=== PATIENT | male | born 1955 | race Caucasian/White ===

== ENCOUNTER → 2016-07-20 13:47 | Outpatient (CLI) | payer OTHER ==
[2012-05-11 07:35] VITALS: BMI 29.2
== END | disposition home or self-care (01) ==
LOC: D.US 13:47
DX: I65.23 Occlusion and stenosis of bilateral carotid arteries (principal)

== ENCOUNTER 2017-01-12 07:27 | Outpatient (CLI) | payer OTHER ==
[~2017-01-12] VITALS: Ht 182.9 cm; Wt 86.4 kg
--- NOTE | ~2017-01-12 | HEMODYNAMI ---
PATIENT:FAUSTINA MONACO MEDICAL RECORD: [id number] : 55 LOCATION:D.CAT ADMISSION DATE: 01/12/17 Generatedon:01/12/20179:53 Patient name: FAUSTINA MONACO Patient #: [id number] SSN: : 1955 Date of study: 01/12/2017 Page: Of Hemodynamic Procedure Report Patient Data Patient Demographics Procedure consent was obtained First Name: FAUSTINA Gender: Male Last Name: JACINDA : 1955 Middle Initial: A Age: 61 year(s) Patient #: [id number] Race: Unknown Additional ID: [id number] Contact details [address]: [address] [place] [address] State: [place] City: [place] Zip code: [address] Past Medical History Allergies: No known allergies Admission Admission Data Admission Date: 01/12/2017 Admission Time: 7:27 Lab Results Lab Result Date: 01/12/2017 Lab Result Time: 0:00 Biochemistry Name Units Result Min Max Creatinine mg/dl 1 --(--*-)-- 0.6 1.3 CBC Name Units Result Min Max Hemoglobin g/dl 14.6 --(-*--)-- 13.5 17.5 Procedure Procedure Types Cath Procedure Diagnostic Procedure [facility] w/Coronaries PCI Procedure Coronary Stent Initial Miscellaneous Procedures Moderate Sedation up to 15 minutes Procedure Description Procedure Date Procedure Date: 01/12/2017 Procedure Start Time: 9:36 Procedure End Time: 9:50 Procedure Staff Name Function Cayden Dale MD Performing Physician Vielka Mckinney RT Scrub Abisai Lilly RT Scrub Mariana Natarajan RT Monitor Marshal Wilkerson RN Nurse Procedure Data Cath Procedure Fluoroscopy Diagnostic fluoroscopy Total fluoroscopy Time: 2.8 time: 2.8 min min Diagnostic fluoroscopy Total fluoroscopy dose: 577 dose: 577 mGy mGy Contrast Material Contrast Material Type Amount (ml) Isovue 300 65 Entry Location Entry Primary Successful Side Size Upsize Upsize Entry Closure Interiano ccessful Closure Location (Fr) 1 (Fr) 2 (Fr) Remarks Device Remarks Radial Right 6 Fr Mechanical artery Short Compression Estimated blood loss: 10 ml Diagnostic catheters Device Type Used For End Catheter Placement Diagnostic Terumo 5Fr LV Angiography Assawoman 110cm catheter Diagnostic Terumo 5Fr Left Coronary Assawoman 110cm catheter Angiography Diagnostic Terumo 5Fr Right Coronary Assawoman 110cm catheter Angiography Procedure Complications No complications Procedure Medications Medication Administration Route Dosage 0.9% NaCl I.V. 100 ml/hr Oxygen NC 2 l/min Benadryl I.V. 50 mg Heparin Flush Bag added to field 2 bags (1000units/500ml NS) Lidocaine 2% added to field 20 Radial Cocktail added to field 1 syringe (Verapomil 2mg/Nitro 400mcg/Heparin 1500units) Versed I.V. 2 mg Fentanyl I.V. 100 mcg Radial Cocktail I.A. 1 syringe (Verapomil 2mg/Nitro 400mcg/Heparin 1500units) Integrilin (Bolus I.V. 7.9 ml 2mg/ml) Heparin Bolus I.V. 4000 units Plavix P.O. 600 mg Hemodynamics Rest HGB: 14.6 (g/dl) Heart Rate: 53 (bpm) Snapshots Pre Cath Intra NCS Post Cath Vital Signs Time Heart Resp SPO2 etCO2 HW4wstm NIBP (mmHg) Rhythm Pain Sedation Rate (ipm) (%) (mmHg) (mmHg) Status Level (bpm) 9:21:45 53 24 96 0 0 136/68(111) NSR 0 (11) 10(A) , No pain 9:26:09 53 13 97 0 0 137/73(112) NSR 0 (11) 10(A) , No pain 9:30:31 53 13 97 0 0 126/71(111) NSR 0 (11) 10(A) , No pain 9:34:51 53 16 97 0 0 126/66(104) NSR 0 (11) 10(A) , No pain 9:39:12 60 16 95 0 0 117/55(83) NSR 0 (11) 10(A) , No pain 9:43:30 58 17 95 0 0 117/59(95) NSR 0 (11) 10(A) , No pain 9:47:47 59 19 96 0 0 124/64(100) NSR 0 (11) 10(A) , No pain 9:52:06 53 13 97 0 0 130/68(106) NSR 0 (11) 10(A) , No pain Medications Time Medication Route Dose Verified Delivered Reason Notes Effectiveness by by 9:18:45 0.9% NaCl I.V. 100 Marshal Marshal Per physician ml/hr Rock Wilkerson RN RN 9:19:14 Oxygen NC 2 l/min Marshal Marshal Per physician Rock Wilkerson RN RN 9:19:48 Benadryl I.V. 50 mg Marshal Marshal for sedation Rock Wilkerson RN, RN 9:20:18 Heparin Flush added 2 bags Marshal Marshal used for Bag to Lorigan Rock procedure (1000units/500ml field MORFIN RN NS) 9:20:36 Lidocaine 2% added 20ml Marshal Marshal used for to vial Lorigan Lorigan procedure field MORFIN RN 9:21:00 Radial Cocktail added 1 Marshal Marshal for (Verapomil to syringe Rock Wilkerson vasodilation 2mg/Nitro field MORFIN RN 400mcg/Heparin 1500units) 9:35:42 Versed I.V. 2 mg Marshal Marshal for sedation Rock Wilkerson RN RN 9:35:59 Fentanyl I.V. 100 mcg Marshal Marshal for sedation Rock Wilkerson RN RN 9:38:14 Radial Cocktail I.A. 1 Marshal Cayden for (Verapomil syringe Rock Dale MD vasodilation 2mg/Nitro RN 400mcg/Heparin 1500units) 9:45:03 Integrilin I.V. 7.9ml Marshal Marshal for (Bolus 2mg/ml) Rock Wilkerson antiplatelet RN RN therapy 9:45:42 Heparin Bolus I.V. 4000 Marshal Marshal for units Rock Wilkerson anticoagulation RN RN 9:50:48 Plavix P.O. 600 mg Marshal Marshal for Rock Wilkerson antiplatelet RN RN therapy Procedure Log Time Note 9:00:04 Marshal Wilkerson RN sent for patient. Start room use. 9:11:10 Time tracking: Regular hours 9:11:14 Plan of Care:Hemodynamics will remain stable., Cardiac rhythm will remain stable., Comfort level will be maintained., Respiratory function will remain adequate., Patient/ family verbilizes understanding of procedure., Procedure tolerated without complication., Recovers from procedure without complications.. 9:11:18 Patient received from Pre/Post Procedure Room to CCL 1 Alert and oriented. Tansferred to table in Supine position. 9:11:19 Warm blankets applied, and juliet hugger turned on for patient comfort. 9:11:19 Correct patient and procedure confirmed by team. 9:11:20 Signed procedure consent form obtained from patient. 9:11:21 ECG and BP/O2 sat monitors applied to patient. 9:11:22 Full Disclosure recording started 9:12:35 H&P Date Dictated: 01/12/2017 H&P Addendum completed by physician on day of procedure. (MUST COMPLETE FOR ALL OUTPATIENTS), New H&P dictated by physician.. 9:12:37 Pre-procedure instructions explained to patient. 9:12:37 Pre-op teaching completed and patient verbalized understanding. 9:12:39 Family in patients room. 9:12:40 Patient NPO since Midnight. 9:12:51 Patient allergic to No known allergies 9:12:57 Rhythm: sinus bradycardia 9:13:05 Vital chart was started 9:13:08 Is the patient allergic to Iodine/contrast media? No. 9:13:11 Is patient on blood thinner?No 9:13:15 Patient diabetic? No. 9:13:18 Previous problem with sedation/anesthesia? No ? 9:13:19 Snore? Yes 9:13:20 Sleep apnea? No 9:13:21 Deviated septum? No 9:13:21 Opens mouth fully? Yes 9:13:22 Sticks out tongue? Yes 9:13:24 Airway obstruction? No ? 9:13:25 Dentures? No ? 9:13:28 Pre procedure: right dorsailis pedis pulse 2+ Normal; easily identifiable; not easily obliterated 9:13:35 Modified Parag's test Ulnar < 7 seconds 9:13:38 Patient pain scale 0/10 ?. 9:13:44 IV patent on arrival in left hand with 0.9% NaCl at [facility]. 9:14:25 Lab Result : Creatinine 1 mg/dl 9:14:25 Lab Result : Hemoglobin 14.6 g/dl 9:14:28 Lab results completed and on chart. 9:14:34 Right Radial & Right Groin area was prepped with chlora-prep and draped in sterile fashion 9:14:35 Alarms reviewed by R. N. 9:14:35 Sharps counted by scrub and verified by R.N. 9:14:39 Use device set Radial Dx 9:14:40 Acist Syringe opened to sterile field. 9:14:41 Medline Cath Pack opened to sterile field. 9:14:41 Bag Decanter opened to sterile field. 9:14:42 Terumo 6Fr Slender Glidesheath opened to sterile field. 9:14:42 St Navid 260cm J .035 wire opened to sterile field. 9:14:42 Acist Hand Control opened to sterile field. 9:14:43 Acist Manifold opened to sterile field. 9:14:43 Tegaderm 4 x 4 opened to sterile field. 9:14:43 MBrace Wrist Support opened to sterile field. 9:17:43 Baseline sample Acquired. 9:18:45 0.9% NaCl 100 ml/hr I.V. was administered by Marshal Wilkerson RN; Per physician; 9:19:14 Oxygen 2 l/min NC was administered by Marshal Wilkerson RN; Per physician; 9:19:18 Vital chart was stopped 9:19:48 Benadryl 50 mg I.V. was administered by Marshal Wilkerson RN; for sedation; 9:20:18 Heparin Flush Bag (1000units/500ml NS) 2 bags added to field was administered by Marshal Wilkerson RN; used for procedure; 9:20:36 Lidocaine 2% 20ml vial added to field was administered by Marshal Wilkerson RN; used for procedure; 9:20:36 Vital chart was started 9:21:00 Radial Cocktail (Verapomil 2mg/Nitro 400mcg/Heparin 1500units) 1 syringe added to field was administered by Marshal Wilkerson RN; for vasodilation; 9:26:59 Physician paged 9:34:26 Final Timeout: patient, procedure, and site verified with staff and physician. All members of the team are in agreement. 9:34:27 Right Radial site verified by team. 9:34:37 Physical assessment completed. ASA score P 2 - A patient with mild systemic disease as per Cayden Dale MD. 9:34:41 Sedation plan: IV Moderate Sedation Versed, Fentanyl 9:35:42 Versed 2 mg I.V. was administered by Marshal Lorigan RN; for sedation; 9:35:59 Fentanyl 100 mcg I.V. was administered by Marshal Wilkerson RN; for sedation; 9:36:03 Procedure started. 9:36:11 Local anesthetic to right radial artery with Lidocaine 2% by Cayden Dale MD.INITIAL ACCESS ONLY 9:36:46 A 6 Fr Short sheath was inserted into the Right Radial artery 9:38:14 Radial Cocktail (Verapomil 2mg/Nitro 400mcg/Heparin 1500units) 1 syringe I.A. was administered by Cayden Dale MD; for vasodilation; 9:38:35 A Diagnostic Terumo 5Fr Assawoman 110cm catheter was advanced over the wire and used for LV Angiography. 9:38:50 LV gram done using MONROY 9:38:57 EF : 60 % 9:39:01 Injector settings: Ml/sec: 5, Volume: 15, 9:39:07 A Diagnostic Terumo 5Fr Assawoman 110cm catheter was advanced over the wire and used for Left Coronary Angiography. 9:39:55 A Diagnostic Terumo 5Fr Assawoman 110cm catheter was advanced over the wire and used for Right Coronary Angiography. 9:40:07 OMG BasixCompak Inflation Kit opened to sterile field. 9:40:08 Beard Whisper J 300cm 0.014 guide wire opened to sterile field. 9:40:37 Catheter removed. 9:41:04 Cordis 6FR XBLAD 3.5 guide catheter opened to sterile field. 9:41:39 6 Fr XBLAD 3.5 guide catheter was inserted over the wire 9:43:43 Whisper wire advanced. 9:45:03 Integrilin (Bolus 2mg/ml) 7.9ml I.V. was administered by Marshal Wilkerson RN; for antiplatelet therapy; 9:45:42 Heparin Bolus 4000 units I.V. was administered by Marshal Wilkerson RN; for anticoagulation; 9:45:54 Inflation Number: 1 A Raz OTW 3.0 x 18 stent was prepped and advanced across the Prox CX. The stent was deployed at 11 OSCAR for 0:10 (min:sec). 9:46:09 Stent catheter was removed intact over wire. 9:46:10 Wire removed. 9:46:10 Guide catheter removed. 9:46:18 Sheath removed intact; hemostasis achieved with Mechanical Compression to the Right Radial artery. 9:46:24 Procedure ended.(Physican Out) 9:46:35 Fluoroscopy time 02.80 minutes. 9:46:38 Fluoroscopy dose: 577 mGy 9:46:38 Flurop Dose total: 577 9:46:42 Contrast amount:Isovue 300 65ml. 9:46:43 Sharps counted by scrub and verified by R.N. 9:46:53 TR band inflated with 10cc of air. 9:46:54 Insertion/operative site no bleeding no hematoma. 9:47:01 Post right radial artery:stable, clean and dry 9:47:03 Post Procedure Pulses reassessed and unchanged 9:47:06 Post-procedure physical assessment completed. ASA score P 2 - A patient with mild systemic disease as per Cayden Dale MD. 9:47:08 Post procedure rhythm: unchanged. 9:47:12 Estimated blood loss: 10 ml 9:47:13 Post procedure instruction explained to patient.Patient verbalizes understanding. 9:47:13 Patient needs reinforcement of post procedure teaching. 9:47:26 Procedure type changed to Cath procedure, Diagnostic procedure, LHC, LHC w/Coronaries, PCI procedure, Coronary Stent Initial, Miscellaneous Procedures, Moderate Sedation up to 15 minutes 9:47:33 Procedure Complication : No complications 9:47:36 See physician's report for complete and final results. 9:47:51 Terumo TR Band Standard opened to sterile field. 9:49:07 Procedure and supply charges have been captured, reviewed, submitted and are correct. 9:50:12 Report given to Pre/Post Procedure Room. 9:50:18 Patient transfered to Pre/Post Procedure Room with Stretcher. 9:50:36 Procedure ended. 9:50:36 Full Disclosure recording stopped 9:50:48 Plavix 600 mg P.O. was administered by Marshal Wilkerson RN; for antiplatelet therapy; 9:50:58 End room use (Document Last) 9:53:08 Vital chart was stopped Intervention Summary Intervention Notes Time ActionType Lesion and Equipment Action# Pressure Duration Attributes Used 9:45:54 Place stent Prox CX Raz OTW 1 11 00:10 3.0 x 18 stent Device Usage Item Name Manufacture Quantity Catalog Hospital Part Current Minima l Lot# / Number Charge Number Stock Stock Serial# Code Acist Acist 1 [id number] [id number] 842612 111137 20 Syringe Medical Systems Inc Medline Cardinal 1 [id number] 734895 47315 423093 5 Cath Pack Health Bag Microtek 1 2002S 071381 45759 238928 5 Decanter Medical Inc. Terumo 6Fr Terumo 1 [id number] 959005 660353 452416 [address] Nav[address] St Navid 1 391715 021845 870155 816301 30 260cm J .035 wire Acist Hand Acist 1 22107 139788 008192 113221 5 Control Medical Systems Inc Acist Acist 1 27637 738175 402630 305423 5 Manifold Medical Systems Inc Tegaderm 4 3M 1 1626W 776965 809722 745129 5 x 4 MBrace Advanced 1 140-0250-00 866179 23008 573222 5 Wrist Vascular Support Dynamics Diagnostic Terumo 1 36-0248 535147 384155 490378 5 Terumo 5Fr Assawoman 110cm catheter Merit Merit 1 [id number] 678658 408791 302880 15 BasixCompak Medical Inflation Kit Beard Beard 1 [id number] 862132 543633 304528 5 Whisper J Vascular 300cm 0.014 guide wire Cordis 6FR Cardinal 1 [id number] 479203 275516 642633 10 XBLAD 3.5 Health guide catheter [place] OTW Medtronic 1 [id number] 498488 7772361 254865 5 [id number] 3.0 x 18 stent Terumo TR Terumo 1 [id number] 346512 400895 940982 40 Band Standard Signature Audit [place] Stage Time Signature Unsigned Intra-Procedure 01/12/2017 Mariana 9:53:06 AM Counts RT(R) Signatures Monitor : Mariana Signature : Counts RT Date : Time : [facility] [address] [place] [address]
--- NOTE | ~2017-01-12 | HEMODYNAMI ---
PATIENT:FAUSTINA MONACO MEDICAL RECORD: [id number] : 55 LOCATION:[id number] ADMISSION DATE: 01/12/17 Generatedon:01/13/20178:47 Patient name: FAUSTINA MONACO Patient #: [id number] SSN: : 1955 Date of study: 01/13/2017 Page: Of Hemodynamic Procedure Report Patient Data Patient Demographics Procedure consent was obtained First Name: FAUSTINA Gender: Male Last Name: JACINDA : 1955 Middle Initial: A Age: 61 year(s) Patient #: [id number] Race: Unknown Additional ID: [id number] Contact details [address]: [address] [place] [address] State: [place] City: [place] Zip code: [address] Past Medical History Allergies: No known allergies Admission Admission Data Admission Date: 01/12/2017 Admission Time: 7:27 Room #: 2119 Lab Results Lab Result Date: 01/12/2017 Lab Result Time: 0:00 Biochemistry Name Units Result Min Max Creatinine mg/dl 1 --(--*-)-- 0.6 1.3 CBC Name Units Result Min Max Hemoglobin g/dl 14.6 --(-*--)-- 13.5 17.5 Procedure Procedure Types Cath Procedure PCI Procedure Coronary Stent Initial Miscellaneous Procedures Moderate Sedation up to 30 minutes Peripheral Cath Diagnostic Procedure Cath Peripheral Vvtpi-Bvklmtf-Xyq-Off Procedure Description Procedure Date Procedure Date: 01/13/2017 Procedure Start Time: 8:16 Procedure End Time: 8:46 Procedure Staff Name Function Cayden Dale MD Performing Physician Vielka Mckinney RT Scrub Abisai Lilly RT Scrub Samir Krueger RN Nurse Mariana Natarajan RT Monitor Procedure Data Cath Procedure Fluoroscopy Diagnostic fluoroscopy Total fluoroscopy Time: 5.1 time: 5.1 min min Diagnostic fluoroscopy Total fluoroscopy dose: 377 dose: 377 mGy mGy Contrast Material Contrast Material Type Amount (ml) Isovue 300 104 Entry Location Entry Primary Successful Side Size Upsize Upsize Entry Closure Interiano ccessful Closure Location (Fr) 1 (Fr) 2 (Fr) Remarks Device Remarks Femoral Left 6 Fr Exoseal artery Short Femoral Right 6 Fr unable artery Short to access Radial Right 6 Fr Mechanical artery Short Compression Estimated blood loss: 10 ml Diagnostic catheters Device Type Used For End Catheter Placement Cordis Aqua 5Fr Major Abdominal 125cm catheter aortogram with runoff Diagnostic Infinity 5Fr Procedure 3DRC catheter Procedure Complications No complications Procedure Medications Medication Administration Route Dosage Oxygen NC 2 l/min Heparin Flush Bag added to field 2 bags (1000units/500ml NS) 0.9% NaCl I.V. 100 ml/hr Fentanyl I.V. 50 mcg Versed I.V. 1 mg Fentanyl I.V. 50 mcg Versed I.V. 1 mg Fentanyl I.V. 50 mcg Fentanyl I.V. 50 mcg Radial Cocktail added to field 1 syringe (Verapomil 2mg/Nitro 400mcg/Heparin 1500units) Radial Cocktail I.A. 1 syringe (Verapomil 2mg/Nitro 400mcg/Heparin 1500units) Heparin Bolus I.V. 4000 units Hemodynamics Rest HGB: 14.6 (g/dl) Heart Rate: 68 (bpm) Snapshots Pre Cath Intra NCS Post Cath Vital Signs Time Heart Resp SPO2 etCO2 LL1laqr NIBP (mmHg) Rhythm Pain Sedation Rate (ipm) (%) (mmHg) (mmHg) Status Level (bpm) 8:05:38 72 19 94 0 0 153/77(126) NSR 0 (11) 10(A) , No pain 8:10:23 65 17 95 0 0 160/78(125) NSR 0 (11) 10(A) , No pain 8:15:06 62 18 98 0 0 147/80(115) NSR 0 (11) 10(A) , No pain 8:19:48 64 16 98 0 0 155/78(123) NSR 0 (11) 9(A) , No pain 8:24:33 66 17 98 0 0 161/80(132) NSR 0 (11) 9(A) , No pain 8:29:14 79 17 96 0 0 132/78(102) NSR 0 (11) 9(A) , No pain 8:33:52 72 20 96 0 0 138/72(113) NSR 0 (11) 9(A) , No pain 8:38:31 69 20 98 0 0 142/86(124) NSR 0 (11) 9(A) , No pain 8:42:47 66 21 99 0 0 159/74(108) NSR 0 (11) 9(A) , No pain Medications Time Medication Route Dose Verified Delivered Reason Notes Effectiveness by by 7:47:53 Oxygen NC 2 l/min Samir Dawson Per physician Evans Krueger RN RN 7:48:02 Heparin Flush added 2 bags Samir Dawson used for Bag to Evans Krueger RN procedure (1000units/500ml field RN NS) 7:48:13 0.9% NaCl I.V. 100 Samir Dawson Per physician ml/hr Evans Krueger RN RN 8:14:42 Fentanyl I.V. 50 mcg Samir Dawson for sedation Evans Krueger RN RN 8:14:50 Versed I.V. 1 mg Samir Dawson for sedation Evans Krueger RN RN 8:15:48 Fentanyl I.V. 50 mcg Samir Dawson for sedation Evans Krueger RN RN 8:15:55 Versed I.V. 1 mg Samir Dawson for sedation Evans Krueger RN RN 8:19:32 Fentanyl I.V. 50 mcg Samir Dawson for sedation Evans Krueger RN RN 8:23:14 Fentanyl I.V. 50 mcg Samir Amayay for sedation Evans Krueger RN RN 8:26:29 Radial Cocktail added 1 Samir Samir used for (Verapomil to syringe Evans Krueger RN procedure 2mg/Nitro field RN 400mcg/Heparin 1500units) 8:26:45 Radial Cocktail I.A. 1 Samir Cayden for (Verapomil syringe Evans Dale MD vasodilation 2mg/Nitro RN 400mcg/Heparin 1500units) 8:31:58 Heparin Bolus I.V. 4000 Samir Dawson for units Evans Krueger RN anticoagulation still tender Log Time Note 7:30:33 Samir Krueger RN sent for patient. Start room use. 7:31:18 Time tracking: Regular hours 7:31:23 Plan of Care:Hemodynamics will remain stable., Cardiac rhythm will remain stable., Comfort level will be maintained., Respiratory function will remain adequate., Patient/ family verbilizes understanding of procedure., Procedure tolerated without complication., Recovers from procedure without complications.. 7:43:02 Patient received from PCU to CCL 1 Alert and oriented. Tansferred to table in Supine position. 7:43:04 Warm blankets applied, and juliet hugger turned on for patient comfort. 7:43:04 Correct patient and procedure confirmed by team. 7:43:06 Signed procedure consent form obtained from patient. 7:43:06 ECG and BP/O2 sat monitors applied to patient. 7:43:07 Full Disclosure recording started 7:47:53 Oxygen 2 l/min NC was administered by Samir Krueger RN; Per physician; 7:48:02 Heparin Flush Bag (1000units/500ml NS) 2 bags added to field was administered by Samir Krueger RN; used for procedure; 7:48:04 Vital chart was started 7:48:13 0.9% NaCl 100 ml/hr I.V. was administered by Samir Krueger RN; Per physician; 7:49:33 Vital chart was stopped 7:49:34 Vital chart was started 7:53:28 H&P Date Dictated: 01/12/2017 Within 30 days and on chart.. 7:53:29 Pre-procedure instructions explained to patient. 7:53:29 Pre-op teaching completed and patient verbalized understanding. 7:53:30 Family in waiting room. 7:53:32 Patient NPO since Midnight. 7:53:37 Patient allergic to No known allergies 7:53:39 Is the patient allergic to Iodine/contrast media? No. 7:53:41 Is patient on blood thinner?Yes 7:53:43 ACC The patient was administered the following blood thiners within the last 24 hours: ACCAspirin, ACCPlavix 7:53:45 Patient diabetic? No. 7:53:48 Previous problem with sedation/anesthesia? No ? 7:53:49 Snore? Yes 7:53:50 Sleep apnea? No 7:53:52 Deviated septum? No 7:53:53 Opens mouth fully? Yes 7:53:53 Sticks out tongue? Yes 7:53:55 Airway obstruction? No ? 7:53:57 Dentures? No ? 7:54:00 Pre procedure: right dorsailis pedis pulse 2+ Normal; easily identifiable; not easily obliterated 7:54:03 Pre procedure: left dorsailis pedis pulse 2+ Normal; easily identifiable; not easily obliterated 7:54:05 Patient pain scale 0/10 ?. 7:54:11 IV patent on arrival in left hand with 0.9% NaCl at KVO. 7:54:16 Lab results completed and on chart. 7:54:19 Bilateral groins area was prepped with chlora-prep and draped in sterile fashion 7:54:21 Alarms reviewed by R. N. 7:54:21 Sharps counted by scrub and verified by R.N. 7:54:32 Procedure type changed to Cath procedure, PCI procedure, Coronary Stent Initial, Miscellaneous Procedures, Moderate Sedation up to 30 minutes, Peripheral Cath Diagnostic Procedure, Cath Peripheral, Vhzaw-Anlrssw-Nxf-Off 7:56:51 Vital chart was stopped 7:56:53 Vital chart was started 7:58:04 Vital chart was stopped 7:58:05 Vital chart was started 8:03:04 Physician paged 8:04:35 Vital chart was stopped 8:04:39 Vital chart was started 8:05:07 Physician responded to page. 8:06:22 Baseline sample Acquired. 8:06:56 Use device set Femoral PCI 8:06:57 Acist Syringe opened to sterile field. 8:06:58 Acist Hand Control opened to sterile field. 8:06:58 Bag Decanter opened to sterile field. 8:06:59 Medline Cath Pack opened to sterile field. 8:06:59 Terumo 6Fr Reno Sheath opened to sterile field. 8:06:59 St Navid 260cm J .035 wire opened to sterile field. 8:07:00 Merit BasixCompak Inflation Kit opened to sterile field. 8:07:00 Acist Manifold opened to sterile field. 8:07:01 Tegaderm 4 x 4 opened to sterile field. 8:07:09 Beard Whisper J 300cm 0.014 guide wire opened to sterile field. 8:13:57 Final Timeout: patient, procedure, and site verified with staff and physician. All members of the team are in agreement. 8:13:59 Left groin site verified by team. 8:14:01 Physical assessment completed. ASA score P 2 - A patient with mild systemic disease as per Cayden Dale MD. 8:14:04 Sedation plan: IV Moderate Sedation Versed, Fentanyl 8:14:42 Fentanyl 50 mcg I.V. was administered by Samir Krueger RN; for sedation; 8:14:50 Versed 1 mg I.V. was administered by Samir Krueger RN; for sedation; 8:15:48 Fentanyl 50 mcg I.V. was administered by Samir Krueger RN; for sedation; 8:15:55 Versed 1 mg I.V. was administered by Samir Krueger RN; for sedation; 8:16:28 Procedure started. 8:16:32 Local anesthetic to left femerol artery with Lidocaine 2% by Cayden Dale MD.INITIAL ACCESS ONLY 8:17:08 A 6 Fr Short sheath was inserted into the Left Femoral artery 8:18:11 A Diagnostic Infinity 5Fr 3DRC catheter was advanced over the wire and used for Procedure. 8:19:32 Fentanyl 50 mcg I.V. was administered by Samir Krueger RN; for sedation; 8:20:40 Local anesthetic to right femoral artery with Lidocaine 2% by Cayden Dale MD.ADDITIONAL ACCESS 8:20:55 A 6 Fr Short sheath was inserted into the Right Femoral artery unable to access 8:21:21 unable to advance wire via femoral. right radial prepped . 8:23:14 Fentanyl 50 mcg I.V. was administered by Samir Krueger RN; for sedation; 8:26:29 Radial Cocktail (Verapomil 2mg/Nitro 400mcg/Heparin 1500units) 1 syringe added to field was administered by Samir Krueger RN; used for procedure; 8:26:45 Radial Cocktail (Verapomil 2mg/Nitro 400mcg/Heparin 1500units) 1 syringe I.A. was administered by Cayden Dale MD; for vasodilation; 8:26:58 Local anesthetic to right radial artery with Lidocaine 2% by Cayden Dale MD.ADDITIONAL ACCESS 8:27:09 A 6 Fr Short sheath was inserted into the Right Radial artery 8:27:31 A Cordis Aqua 5Fr Major 125cm catheter was advanced over the wire and used for Abdominal aortogram with runoff. 8:27:53 Terumo 6Fr Slender Glidesbhargavth opened to sterile field. 8:27:53 Terumo 6Fr Reno Sheath opened to sterile field. 8:30:56 Catheter removed. 8:31:44 6 Fr HS I SH guide catheter was inserted over the wire 8:31:58 Heparin Bolus 4000 units I.V. was administered by Samir Krueger RN; for anticoagulation; 8:33:00 Guide Catheter removed. unable to cannulate vessel. 8:33:22 Medtronic Launcher 6Fr AR 2.0 SH guide catheter opened to sterile field. 8:33:33 6 Fr AR 2.0 SH guide catheter was inserted over the wire 8:34:59 Whisper wire advanced. 8:36:28 Inflation Number: 1 A Raz OTW 3.0 x 15 stent was prepped and advanced across the Dist RCA. The stent was deployed at 13 OSCAR for 0:09 (min:sec). 8:36:44 Sheath removed intact; hemostasis achieved with Exoseal to the Left Femoral artery. 8:36:48 Stent catheter was removed intact over wire. 8:36:49 Wire removed. 8:36:49 Guide catheter removed. 8:37:49 Sheath removed intact; hemostasis achieved with Mechanical Compression to the Right Radial artery. 8:38:48 Terumo TR Band Standard opened to sterile field. 8:38:49 Cordis 6Fr Exoseal opened to sterile field. 8:38:51 Procedure ended.(Physican Out) 8:43:09 Fluoroscopy time 05.10 minutes. 8:43:12 Flurop Dose total: 377 8:43:12 Fluoroscopy dose: 377 mGy 8:43:16 Contrast amount:Isovue 300 104ml. 8:43:17 Sharps counted by scrub and verified by R.N. 8:43:19 TR band inflated with 12cc of air. 8:43:20 Insertion/operative site no bleeding no hematoma. 8:43:24 Post-op/insertion site Left Femoral artery dressed using a 4 x 4 and Tegaderm. 8:43:29 Post left femerol artery:stable, clean and dry 8:43:36 Post Procedure Pulses reassessed and unchanged 8:43:41 Post-procedure physical assessment completed. ASA score P 2 - A patient with mild systemic disease as per Cayden Dale MD. 8:43:43 Post procedure rhythm: unchanged. 8:43:46 Estimated blood loss: 10 ml 8:43:47 Post procedure instruction explained to patient.Patient verbalizes understanding. 8:43:48 Patient needs reinforcement of post procedure teaching. 8:43:53 Procedure Complication : No complications 8:43:56 See physician's report for complete and final results. 8:44:37 Medtronic Launcher 6Fr HS I SH guide catheter opened to sterile field. 8:45:07 MBrace Wrist Support opened to sterile field. 8:46:35 Procedure and supply charges have been captured, reviewed, submitted and are correct. 8:46:37 Report given to PCU. 8:46:39 Patient transfered to PCU with Bed. 8:46:52 Procedure ended. 8:46:52 Full Disclosure recording stopped 8:46:55 End room use (Document Last) 8:47:20 Vital chart was stopped Intervention Summary Intervention Notes Time ActionType Lesion and Equipment Action# Pressure Duration Attributes Used 8:36:28 Place stent Dist RCA [place] OTW 1 13 00:09 3.0 x 15 stent Device Usage Item Name Manufacture Quantity Catalog Hospital Part Current Minimal Lot# / Number Charge Number Stock Stock Serial# Code Acist Acist 1 77610 [id number] 343886 026272 20 Syringe Medical Systems Inc Acist Hand Acist 1 06649 148733 973363 120758 5 Control Medical Systems Inc Bag Microtek 1 2002S 833001 10878 777181 5 DecVadio Medical Inc. Medline Cardinal 1 [id number] 553248 91426 146926 5 Cath Pack Health Terumo 6Fr Terumo 2 [id number] 318396 117311 638007 [address] Nav[address] St Navid 1 [id number] 064798 934384 143747 30 260cm J .035 wire Merit Merit 1 [id number] 372711 599126 749837 15 BasixCompak Medical Inflation Kit Acist Acist 1 88077 864381 248454 058002 5 Manifold Medical Systems Inc Tegaderm 4 3M 1 1626W 285350 957981 830013 5 x 4 Beard Beard 1 [id number] 216413 698282 876043 5 Whisper J Vascular 300cm 0.014 guide wire Cordis Aqua Cardinal 1 [id number] 179179 734653 563175 5 5Fr Health Major 125cm catheter Terumo 6Fr Terumo 1 [id number] 754305 088555 056920 40 Slender Glidesheath Diagnostic Cardinal 1 [id number] 439256 427891 134399 9 Infinity Health 5Fr 3DRC catheter Medtronic Medtronic 1 [id number] 471345 91380 369745 1 Launcher 6Fr AR 2.0 SH guide catheter Raz OTW Medtronic 1 [id number] 087515 663717 714307 5 [id number] 3.0 x 15 stent Terumo TR Terumo 1 [id number] 874325 441731 176777 40 Band Standard Cordis 6Fr Cardinal 1 EX600 226172 919703 612536 10 Exoseal Health Medtronic Medtronic 1 [id number] 036057 29166 850605 1 Launcher 6Fr HS I SH guide catheter MBrace Advanced 1 [id number] 981661 60225 985035 5 Wrist Vascular Support Dynamics Signature Audit Drayden Stage Time Signature Unsigned Intra-Procedure 01/13/2017 Mariana 8:47:16 AM Counts RT(R) Signatures Monitor : Mariana Signature : Counts RT Date : Time : [place] [address] [place] [address]
[2017-01-12] MEDS ORDERED: PRINIVIL20 MG PO ×2 (07:34)
[2017-01-12] MEDS ORDERED: NEXIUM40 MG PO (07:35)
[2017-01-12] MEDS ORDERED: CARDIZEM LA240 MG PO (07:35)
[2017-01-12] MEDS ORDERED: BAYER CHEWABLE81 MG PO (07:36)
[2017-01-12 07:43] VITALS: BP 163/66; BMI 25.8
[2017-01-12 07:48] LABS: BASOPHILS 0.2 % (0-2); EOSINOPHILS 1.1 % (0-7); HEMATOCRIT 42.5 % (42.0-54.0); HEMOGLOBIN 14.6 g/dL (13.5-17.5); IMMATURE GRANULOCYTES 0.4 % (0-5); LYMPHOCYTES 16.7 % (15-50); MCH 30.7 pg (26.0-34.0); MCHC 34.4 g/dL (31.0-37.0); MCV 89.3 fL (80.0-100.0); MEAN PLATELET VOLUME 10.2 fL (7.4-10.4); MONOCYTES 9.3 % (2-11); NEUTROPHILS 72.3 % (40-80); PLATELET COUNT 199 10x3/uL (130-400); RBC 4.76 10x6/uL (4.20-6.10); RDW 13.3 % (11.5-14.5); WBC 8.2 10x3/uL (4.8-10.8)
[2017-01-12 08:04] LABS: CALC OSMOLALITY 282 mosm/kg (275-300); CALCIUM 8.7 mg/dL (8.5-10.1); CARBON DIOXIDE 27.6 mmol/L (21.0-32.0); CHLORIDE - SERUM 106 mmol/L (98-107); GLUCOSE 99 mg/dL (74-106); POTASSIUM - SERUM 4.2 mmol/L (3.5-5.1); SODIUM 142 mmol/L (136-145); UREA NITROGEN 13 mg/dL (7-18); eGFR NON AFRICAN AMERICAN 81 mL/min (90-120)
--- NOTE | 2017-01-12 10:10 | NUR ---
2L NC, NO RESP DISTRESS NOTED. RIGHT WRIST TR BAND IN PLACE, NO BLEEDING OR HEMATOMA NOTED. VSS. NO C/O CHEST PAIN OR NAUSEA. SANDWICH TRAY AND DRINK GIVEN. AT BEDSIDE, CALL LIGHT WITHIN REACH.
--- NOTE | 2017-01-12 10:30 | NUR ---
1030 TR BAND TO R/WRIST CDI NO BLEEDING NO HEMATOMA NOTED. VSS WITH CHEST PAIN DENIED
--- NOTE | 2017-01-12 10:57 | NUR ---
PATIENT RESTING QUIETLY WITH EYES CLOSED. FAMILY AT SIDE.HR 48 BP117/63. TR BAND REMAINS INTACT NO BLEEDING NOTED
--- NOTE | 2017-01-12 11:19 | NUR ---
1115 PT DENIES ANY C/O TR BAND IS CDI, NO BLEEDING OR HEMATOMA NOTED. CALL LIGHT IN REACH. VSS. SINUS BRADYCARDIA, RATE 51.
--- NOTE | 2017-01-12 12:21 | NUR ---
1145 PT HAS VOIDED 600 CC OF CLEAR YELLOW URINE USING URINAL. TR BAND STABLE WTIH NO BLEEDING OR HEMATOMA NOTED. FINGERS WARM, CAP REFILL IS BRISK. PT DENIES ANY C/O CHEST DISCOMFORT. VSS. AT BEDSIDE, CALL LIGHT IN REACH.
--- NOTE | 2017-01-12 12:23 | NUR ---
1220 DENIES ANY C/O. FAMILY AT BEDSIDE, CALL LIGHT IN REACH.
--- NOTE | 2017-01-12 13:20 | NUR ---
1300 TR BAND DEFLATION BEGUN WITH 3 CC OF AIR REMOVED, NO BLEEDING OR HEMATOMA NOTED. PT HAS YOSELIN PO FLUIDS AND SANDWICH WITH NO C/O. PT DENIES ANY C/O. CALL LIGHT IS IN REACH.
--- NOTE | 2017-01-12 13:49 | NUR ---
2127 NO BLEEDING OR HEMATOMA NOTED AT CATH SITE. VSS, PT DENIES ANY C/O AT THIS TIME. CALL LIGHT IN REACH. CONTINUE POC.
--- NOTE | 2017-01-12 14:14 | NUR ---
1345 TR NAD DEFLATION IS COMPLETE, 2X2 AND TEGADERM APPLIED. NO BLEEDING OR HEMATOMA NOTED. FINGERS WARM CAP REFILL IS BRISK WRIST IMMOBILIZER IN PLACE. VSS, SINUS BRADYCARDIA ON MONITOR. PT DENIES ANY C/O OR NEEDS AT THIS TIME. AWAITING BED FOR INPATIENT STATUS.
--- NOTE | 2017-01-12 15:16 | NUR ---
1515 PT WATCHING TV, DENIES ANY C/O PAIN OR NAUSEA. DRESSING TO RIGHT WRIST IS CDI, NO BLEEDING OR HEMATOMA NOTED. FINGERS WARM, CAP REFILL IS BRISK, PULSES PALPABLE. WRIST IMMOBILIZER IN PLACE. SINUS BRADYCARDIA WITH RATE 49, DENIES ANY C/O CHEST PAIN.VSS. CALL LIGHT IN REACH, CONTINUE POC.
--- NOTE | 2017-01-12 15:43 | NUR ---
1540 REPORT CALLED TO MEAGAN MARTINEZ RN. AWAITING INPATIENT ROOM TO BE CLEANED. PT DENIES ANY C/O AT THIS TIME. IS AT BEDSIDE.
--- NOTE | 2017-01-12 17:02 | NUR ---
1700 PT IS ALERT, DENIES ANY C/O. IV PATENT. DRESSING TO CATH SITE IS CDI. PT TRANSFERRED TO ROOM 2118 VIA STRETCHER WITH AT SIDE.
[2017-01-12 17:23] VITALS: BP 132/72
--- NOTE | 2017-01-12 17:33 | NUR ---
ALERT AND ORIENTED X4. ARRIVE TO ROOM VIA STRETCHER FROM ACCOUNTING ANALYST ACCOMPANIED BY STAFF AND SPOUSE. RT WRIST PUNCTURE SITE DRESSING CLEAN DRY INTACT. FREE FROM BLEEDING. FREE FROM HEMATOMA. LT WRIST IV SL. DENIES SOB OR PAIN. CONSENTS FOR ACCOUNTING ANALYST 01/13/17 SIGNED ON CHART. CONTINUE ADMISSION PROCESS. BED LOCKED AND LOW. CALL LIGHT IN REACH. TWO SIDERAILS UP.
[2017-01-12 17:53] VITALS: BP 132/72; Ht 182.9 cm; Wt 86.4 kg
[2017-01-12 19:00] VITALS: BP 135/66
--- NOTE | 2017-01-12 19:30 | NUR ---
RECEIVED PT IN BED AAOX4 RESP UNLABORED DENIES ANY NEEDS OR DISCOMFORT NAD NOTED
[2017-01-13 04:00] VITALS: BP 137/70
--- NOTE | 2017-01-13 07:40 | NUR ---
ALERT AND ORIENTED X4. PRE-OP FOR STOVE MECHANIC COMPLETE. TAKEN TO STOVE MECHANIC VIA BED. CONTINUE PLAN OF CARE AND SAFETY PRECAUTIONS.
--- NOTE | 2017-01-13 09:18 | NUR ---
ARRIVE BACK TO ROOM VIA WHEELCHAIR. BP-153/74, P-67 SINUS RHTHYM ON TELEMETRY. O2-99% 2L NC. DENIES PAIN OR SOB. BED FLAT. RT WRIST DRESSING CLEAN DRY INTACT. STENT TO RCA. LT GROIN DRESSING CLEAN DRY INTACT. FREE FROM BLEEDING. FREE FROM HEMATOMA. PULSES +2. DENIES ANY NEEDS. BED LOCKED AND LOW. CALL LIGHT IN REACH. TWO SIDERAILS UP.
[2017-01-13] MEDS ORDERED: PLAVIX75 MG PO (11:59)
--- NOTE | 2017-01-13 13:54 | NUR ---
ALERT AND ORIENTED X4. RESTING IN BED. RT GROIN DRESSING CLEAN DRY INTACT. FREE FROM HEMATOMA. FREE FROM BLEEDING. RT WRIST STARTS BLEEDING AFTER 6mL OF AIR DEFLATED. LEAVE TR BAND ON REINFLATE. CONTINUE TO MONITOR. ENCOURAGE PATIENT AND FAMILY TO KEEP RT ARM STABLE AND NOT USE. BED LOCKED AND LOW. CALL LIGHT IN REACH. TWO SIDERAILS UP. SINUS RHTHYM ON TELEMETRY.
--- NOTE | 2017-01-13 15:33 | NUR ---
ALERT AND ORIENTED X4. TR BAND DEFLATED NO BLEEDING. TR BAND REMOVED. FREE FROM BLEEDING FOR 30MINS. LT GROIN DRESSING CLEAN DRY INTACT. DISCHARGE INSTRUCTIONS GIVEN VERBALLY AND WRITTEN. DISCHARGE PAPERS SIGNED ON CHART. WRITTEN PRESCRIPTION FOR PLAVIX PROVIDED. ESCORT TO RIDE VIA WHEELCHAIR. REMAINS FREE FROM INJURY.
--- NOTE | 2017-01-14 12:22 | DS ---
PATIENT:FAUSTINA MONACO :55 MEDICAL RECORD: [id number] DISCHARGE SUMMARY ADMISSION DATE: 01/12/17 DISCHARGE DATE: 01/13/17 DISCHARGE DIAGNOSES: 1. Angina. 2. Coronary artery disease. 3. PTCA stent, RCA and circumflex this admission. 4. Peripheral vascular disease. 5. Claudication. 6. Hypertension. 7. Hyperlipidemia. HOSPITAL COURSE: Mr. Monaco presents with increasing anginal symptomatology, found to have 2-vessel coronary artery disease of the circumflex and RCA, underwent successful PTCA stent of above territories. He as well has a history of peripheral vascular disease; however aortofemoral runoff reveals wide patency of his aortobifemoral graft and no significant disease elsewise. He was discharged home with the addition of aspirin and Plavix to his medical regimen. We will follow up with [facility] in 1 month. TRANSINT:[id number] Voice Confirmation ID: [id number] DOCUMENT ID: [id number] AUDELIA LEUNG MD at 1222 CC: [id number] DICTATION DATE: 01/13/17 0840 CAGE/VAULT SUPERVISOR: 01/13/17 2313 DEP CLI 01/13/17 [facility] [address] [place] [address]
--- NOTE | 2017-01-14 12:22 | OP ---
PATIENT NAME: FAUSTINA MONACO MEDICAL RECORD: [id number] :55 LOCATION:D.CAT ADMISSION DATE: SURGEON: AUDELIA LEUNG MD DATE OF OPERATION: 01/12/2017 PROCEDURES: 1. PTCA stent left circumflex. 2. Left heart catheterization. 3. Selective coronary angiography. 4. Left ventriculogram. INDICATION: Unstable angina. PROCEDURE IN DETAIL: After informed consent was obtained and after a detailed explanation of risks, benefits as well as alternative therapies, the patient elected to proceed with angiogram and angioplasty. The right radial area was prepped and draped in normal sterile fashion. The right radial artery was cannulated via modified Seldinger technique with placement of 6-Latvian sheath. All catheters exchanged through this sheath. FINDINGS: The left ventriculogram was performed in standard 30-degree MONROY view, reveals good cardiac wall motion throughout all segments. Overall ejection fraction estimated at 55%.-60% SELECTIVE CORONARY ANGIOGRAPHY: 1. Left main is with no significant angiographic disease. 2. Left anterior descending has previously placed stent. The stent is widely patent with no significant restenosis. No disease elsewise that is significant throughout the LAD or its branches. 3. Left circumflex had a 70% to 80% stenosis in the mid vessel, otherwise only moderate irregularities. 4. The right coronary has previously placed stents, these are widely patent in the mid vessel; however, the distal vessel has an 80+ percent stenosis. PTCA STENT OF THE LEFT CIRCUMFLEX: The stent used was a 3.0 x 18 mm Raz. Result was 0% residual stenosis. OVERALL IMPRESSION: Successful percutaneous transluminal coronary angioplasty stent of the left circumflex going from 70-80% initial stenosis to 0% residual stenosis. TRANSINT:[id number] Voice Confirmation ID: [id number] DOCUMENT ID: [id number] AUDELIA LEUNG MD at 1222 CC: [id number] DICTATION DATE: 01/12/17 0951 ETHANOL MAINTENANCE MECHANIC: 01/12/17 1434 DEP CLI 01/13/17 [facility] [address] [place] [address]
--- NOTE | 2017-01-14 12:22 | OP ---
PATIENT NAME: FAUSTINA MONACO MEDICAL RECORD: [id number] :55 LOCATION:D.CAT ADMISSION DATE: SURGEON: AUDELIA LEUGN MD DATE OF OPERATION: 01/13/2017 PROCEDURES: 1. Aortofemoral runoff. 2. Abdominal aortography. INDICATION: Claudication and peripheral vascular disease. PROCEDURE IN DETAIL: After informed consent was obtained and after detailed explanation of risks, benefits as well as alternative therapies, the patient elected to proceed with angiogram and aortofemoral runoff. The right radial area was prepped and draped in normal sterile fashion. The radial artery was cannulated via modified Seldinger technique with the placement of 6-Maltese sheath. All catheters exchanged through this sheath. 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 There is aortofemoral bypass grafts bilaterally that are widely patent. RIGHT LEG 1. 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 2. Femoral system right leg common superficial and deep femoral have mild irregularities, but no flow-limiting stenosis. C. Popliteal and infrapopliteal vessels are widely patent with good 3-vessel runoff to the foot. LEFT LEG 1. 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 2. Femoral system right leg common superficial and deep femoral have mild irregularities, but no flow-limiting stenosis. C. Popliteal and infrapopliteal vessels are widely patent with good 3-vessel runoff to the foot. OVERALL IMPRESSION: Wide patency of his aortobifemoral graft bilaterally with no significant disease elsewise. Continue medical management of peripheral vascular disease and peripheral risk factors. TRANSINT:[id number] Voice Confirmation ID: [id number] DOCUMENT ID: [id number] AUDELIA LEUNG MD at 1222 CC: [id number] DICTATION DATE: 01/13/17 0842 BANQUET LEAD: 01/13/17 0854 [facility] CLI 01/13/[address] [address]
--- NOTE | 2017-01-14 12:22 | HP ---
PATIENT: FAUSTINA MONACO MEDICAL RECORD: [id number] ACCOUNT: [id number] LOCATION:PHILIPP : 55 ADMISSION DATE: 01/12/17 HISTORY AND PHYSICAL EXAMINATION DIAGNOSES: 1. Progressive angina. 2. Coronary artery disease. 3. Previous percutaneous transluminal coronary angioplasty stent. 4. Hypertension. 5. Gastroesophageal reflux disease. HISTORY OF PRESENT ILLNESS: Mr. Monaco is status post multivessel PTCA stent in 2010. He has had recurrent episodes of chest pain compatible with angina in a progressive fashion. He is now brought for cardiac catheterization. PHYSICAL EXAMINATION: GENERAL APPEARANCE: Well-nourished, well-developed, appears stated age. Level of distress, comfortable. PSYCHIATRIC: Mental status, alert, normal affect. Orientation, oriented to time, place and person. EYES: Lids and conjunctiva, noninjected. No discharge, no pallor. ENT: Lips, teeth, gums, normal dentition. Oropharynx, no cyanosis, no pallor. NECK: Carotid arteries, bilateral normal upstroke, no bruits, no thrills. JUGULAR VEINS: No jugular venous pressure or distention. CERVICAL LYMPH NODES: Nontender, nonenlarged. THYROID: Not enlarged. Nontender. No nodules. LUNGS: Respiratory effort, unlabored. CHEST: Normal curvature. No thoracic deformity. No chest wall tenderness. Percussion, resonant. Auscultation, clear. No wheezes, no rales, no rhonchi. CARDIOVASCULAR: Precordial exam, nondisplaced. No heaves or pericardial thrills. Rate and rhythm, regular. Heart sounds, normal S1, normal S2. No S3, no gallop, no rub. Systolic murmur, not heard. Diastolic murmur, not heard. EXTREMITIES: No cyanosis, no edema. Peripheral pulses, full and equal in all extremities, except as noted. No bruits appreciated. ABDOMEN: Soft, nondistended. Normal aorta. No bruit. Nontender. No masses. Liver, nontender, no hepatomegaly. Spleen, nontender, no splenomegaly. MUSCULOSKELETAL: No joint tenderness. No joint swelling. No erythema. NEUROLOGICAL: Normal gait, normal strength, normal tone. SKIN: Warm and dry. REVIEW OF SYSTEMS: The patient reports easy bruising but reports no swollen glands. The patient reports no fever, no night sweats, no significant weight gain, no significant weight loss. No significant exercise tolerance. The patient reports no dry eyes, no irritation, no vision change. Patient reports no difficulty hearing and no ear pain. Patient reports no frequent nose bleeds or nose and sinus problems. Patient reports on arm pain on exertion. No shortness of breath while lying down. No history of heart murmur. Patient reports no cough, no wheezing or coughing up blood. Patient reports no abdominal pain, no vomiting. Normal appetite. No diarrhea and not vomiting blood. No nausea and no constipation. Patient reports no incontinence. No difficulty urinating. No hematuria. No increased frequency. Patient reports no muscle aches. No weakness, no arthralgias, no back pain. No swelling of the extremities. Patient reports no abnormal mole, no jaundice, no rashes. Reports no loss of consciousness. No weakness and no numbness. No seizures, dizziness, HISTORY AND PHYSICAL [id number] FAUSTINA MONACO or headaches. The patient reports no depression, no sleep disturbance, feeling safe in a relationship and no alcohol abuse. Patient reports on fatigue. Reports no runny nose or sinus pressure. No itching, no hives, and no frequent sneezing. OVERALL IMPRESSION: Chest pain compatible with angina. Most likely, he has recurrent hemodynamically significant coronary artery disease. We will proceed with coronary angiography. Further care depends upon findings of the angiography. TRANSINT:[id number] Voice Confirmation ID: [id number] DOCUMENT ID: [id number] AUDELIA LEUNG MD at 1222 CC: [id number] DICTATION DATE: 01/12/17 0950 DIRECTOR OF RETAIL MARKETING: 01/12/17 1025 [facility] CLI 01/13/17 [place] [id number]
--- NOTE | 2017-01-14 12:22 | OP ---
PATIENT NAME: FAUSTINA MONACO MEDICAL RECORD: [id number] :55 LOCATION:D.CAT ADMISSION DATE: SURGEON: AUDELIA LEUNG MD DATE OF OPERATION: 01/13/2017 PROCEDURES: 1. PTCA stent RCA. 2. Selective coronary angiography. INDICATION: Angina and coronary artery disease. PROCEDURE IN DETAIL: After informed consent was obtained and after detailed explanation of risks, benefits as well as alternative therapies, the patient elected to proceed with angiogram and angioplasty. The right radial area had a preexisting sheath from aortofemoral runoff, all catheters exchanged through this sheath. FINDINGS: The right coronary has a 70% to 80% stenosis distally. This was addressed with a 3.0 x 15 mm Romney stent. Result was 0% residual stenosis. OVERALL IMPRESSION: Successful percutaneous transluminal coronary angioplasty stent of the RCA going from 70-80% initial stenosis to 0% residual stenosis. TRANSINT:[id number] Voice Confirmation ID: [id number] DOCUMENT ID: [id number] AUDELIA LEUNG MD at 1222 CC: [id number] DICTATION DATE: 01/13/17 0843 FLOOR INSTALLATION MECHANIC: 01/13/17 0900 [facility] CLI 01/13/17 [place] [id number] [place] [address]
== END 2017-01-13 16:38 | disposition home or self-care (01) ==
LOC: D.M2 07:27 → D.CATH 07:27 → D.M2 17:00 → D.CATH 01-13 16:38
PROVIDERS: Internal Medicine Interventional Cardiology
DX: I25.119 Atherosclerotic heart disease of native coronary artery with unspecified angina pectoris (principal); I10 Essential (primary) hypertension; E78.5 Hyperlipidemia, unspecified; I70.213 Atherosclerosis of native arteries of extremities with intermittent claudication, bilateral legs; Z01.812 Encounter for preprocedural laboratory examination

== ENCOUNTER 2017-05-14 11:48 | Inpatient (IN) | payer OTHER ==
[~2017-05-14] VITALS: Ht 182.9 cm; Wt 85.9 kg
--- NOTE | ~2017-05-14 | CN ---
PATIENT NAME:FAUSTINA MONACO MEDICAL RECORD: [id number] : 55 LOCATION:D.[facility] [place] ADMIT DATE: 05/14/17 ACCOUNT: [id number] CONSULTING PHYSICIAN: WAYNE QUESADA MD REFERRING PHYSICIAN: SCOT ABREU MD DATE OF CONSULTATION: 05/16/2017 HISTORY: The patient presented through the Emergency Room. The patient had pancreatitis. He has had a similar episode many years ago. He presented with nausea and vomiting as well as dizziness and band-like epigastric abdominal pain. He presented to the Emergency Room one hour after onset of the symptoms. The patient has not drank any alcohol in [address] scan was performed. An MRI of the biliary system was performed and it revealed gallstones. Palpation aggravates. Nothing alleviates. Symptoms are of moderate intensity. The pain radiates to the back. The pain was described as dull and gnawing. This is a consultation note addendum. For the typed portion of the consult note, please see the chart. This would include past medical and surgical history, current medications, allergies, social history as well as family history. REVIEW OF SYSTEMS: No night sweats. No weight loss. No anorexia. No cough. No dysuria. No numbness. No rash. No anemia. No frequent infections. PAST MEDICAL AND SURGICAL HISTORY: Coronary stents, hypertension. HOME MEDICINES: Lisinopril, Plavix. SOCIAL HISTORY: He does not drink, does not smoke. ALLERGIES: No known drug allergies. PHYSICAL EXAMINATION: GENERAL: The patient does not appear acutely ill. He does not appear chronically ill. VITAL SIGNS: Reviewed. EARS: External ears appear normal. EYES: Extraocular movements are intact. NECK: Trachea is midline. CHEST: No intercostal retractions. PULMONARY: Nonlabored. No stridor. ABDOMEN: Epigastric tenderness. No Horne sign. No Rovsing sign. EXTREMITIES: No peripheral cyanosis. INTEGUMENT: No rash. No ulcerations. PSYCHIATRIC: Normal affect. NEUROLOGIC: Nonfocal. No lethargy. The patient answers questions appropriately and moves all extremities well. BACK: No thoracic kyphosis. IMPRESSION: Gallstone pancreatitis. CONSULT REPORT [id number] FAUSTINA MONACO PLAN: Laparoscopic cholecystectomy, intraoperative cholangiography, possible liver biopsy. TRANSINT:[id number] Voice Confirmation ID: [id number] DOCUMENT ID: [id number] WAYNE QUESADA MD at 0938 CC: PIERO CHIN MD, SCOT ABREU MD and YE STEVENS MD [id number] DICTATION DATE: 05/17/17 1410 GLOBAL SAFETY OFFICER: 05/17/17 1750 DIS IN 05/18/17 [facility] [address] [place] [id number]
--- NOTE | ~2017-05-14 | OP ---
PATIENT NAME: FAUSTINA MONACO MEDICAL RECORD: [id number] :55 LOCATION:D.MS [id number] ADMISSION DATE:05/14/17 SURGEON: GUSTAVO QUESADA MD DATE OF OPERATION: 05/17/2017 PREOPERATIVE DIAGNOSIS: Gallstone pancreatitis. POSTOPERATIVE DIAGNOSIS: Gallstone pancreatitis with hepatomegaly. PROCEDURES: 1. Laparoscopic cholecystectomy. 2. Intraoperative cholangiography without immediate surgeon interpretation. 3. An 18-gauge core needle liver biopsy. SURGEON: Gustavo Quesada MD ORIENTATION AND MOBILITY SPECIALIST: None. BLOOD LOSS: Minimal. ANESTHESIA: General. COMPLICATIONS: None. INDICATION FOR THE LIVER BIOPSY: Hepatomegaly. OPERATIVE COURSE: The patient was conveyed to the operating room electively on 05/17/2017. General anesthesia was induced by the anesthesia staff. The abdomen was sterilely prepped and draped. An incision was accomplished within the midline of the umbilicus. An umbilical hernia was identified and it was incarcerated. I sharply cleaned the surrounding fascia from the hernia defect. I entered the peritoneal cavity through the hernia defect. CO2 insufflation was begun. Once sufficient pneumoperitoneum had been achieved, 3 more trocars were inserted. These were 5-mm trocars. One was inserted in the midline in the epigastrium. Another one was inserted in the right upper quadrant. Another one was inserted far laterally in the right upper quadrant. During insertion of the trocars, there appeared to have been no injury to the bowels, any intraperitoneal or retroperitoneal structure. I advanced an 18-gauge core needle liver biopsy through the skin in the right upper quadrant. Under laparoscopic guidance, I obtained some cores over the convexity of the liver. The biopsy sites were made hemostatic with electrocautery. I advanced a cholangiogram trocar. I punctured the fundus of the gallbladder. I aspirated bile. I then injected dye. The cholangiographic images were obtained and were sent to the radiologist for interpretation. I then aspirated bile and removed the cholangiogram trocar. The gallbladder was grasped and retracted cephalad. The infundibulum was grasped and retracted laterally. Blunt dissection was begun in the triangle of Calot. One cystic artery and one cystic duct were identified. These were clipped multiply and divided between clips. The gallbladder was then excised from its bed in the liver. It was placed within a bag retrieval device and was withdrawn through the umbilical fascia defect. OPERATIVE REPORT [id number] FAUSTINA MONACO The 12-mm trocar was replaced and the abdomen reinsufflated. I irrigated and aspirated the right upper quadrant. There was no bleeding even at low pressure of 8. All trocars were removed and abdomen was desufflated. The umbilical hernia defect was closed with a [id number] #0 Vicryl suture. The umbilical skin was approximated with interrupted 4-0 Vicryl Rapide sutures. The other skin incisions were closed with interrupted intracuticular 3-0 Vicryls. Benzoin and Steri-Strips were applied. The patient was then extubated and conveyed to the postanesthesia care unit, where he was in stable condition. TRANSINT:[id number] Voice Confirmation ID: [id number] DOCUMENT ID: [id number] 05/31/2017 Edited per cici Schwartz. GUSTAVO QUESADA MD at 1454 CC: [id number] DICTATION DATE: 05/17/17 1419 SUPERVISOR GELATIN PLANT: 05/17/17 1831 DIS IN 05/18/17 [place] [id number] [place] [address]
[~2017-05-14 11:48] MED LIST: BAYER CHEWABLE81 MG PO; CARDIZEM LA240 MG PO; NEXIUM40 MG PO; PLAVIX75 MG PO; PRINIVIL20 MG PO
[2017-05-14 12:32] LABS: BASOPHILS 0.1 % (0-2); EOSINOPHILS 0.4 % (0-7); HEMATOCRIT 44.5 % (42.0-54.0); HEMOGLOBIN 15.5 g/dL (13.5-17.5); IMMATURE GRANULOCYTES 0.4 % (0-5); LYMPHOCYTES 8.7 % (15-50); MCH 30.8 pg (26.0-34.0); MCHC 34.8 g/dL (31.0-37.0); MCV 88.3 fL (80.0-100.0); MEAN PLATELET VOLUME 10.1 fL (7.4-10.4); MONOCYTES 7.4 % (2-11); PLATELET COUNT 213 10x3/uL (130-400); RBC 5.04 10x6/uL (4.20-6.10); RDW 12.8 % (11.5-14.5); WBC 18.2 10x3/uL (4.8-10.8)
[2017-05-14 12:52] LABS: ALBUMIN 4.3 g/dL (3.4-5.0); ANION GAP 14.9 mmol/L (8-16); BILIRUBIN - TOTAL 0.6 mg/dL (0.2-1.3); CALCIUM 9.5 mg/dL (8.5-10.1); CARBON DIOXIDE 27.8 mmol/L (21.0-32.0); CREATININE - SERUM 1.5 mg/dL (0.6-1.3); POTASSIUM - SERUM 3.7 mmol/L (3.5-5.1); PROTEIN - SERUM 7.5 g/dL (6.4-8.2)
[2017-05-14 13:11] LABS: APPEARANCE CLEAR (CLEAR); BACTERIA FEW /hpf (NONE SEEN); BILIRUBIN NEGATIVE (NEGATIVE); COLOR YELLOW (YELLOW); EPITHELIAL CELLS 0-5 /hpf (0-5); GLUCOSE NEGATIVE (NEGATIVE); GRANULAR CAST RARE /lpf (NONE SEEN); HYALINE CAST 0-5 /lpf (NONE SEEN); KETONE NEGATIVE (NEGATIVE); MUCUS >1+ /lpf (NONE SEEN); NITRITE NEGATIVE (NEGATIVE); PROTEIN TRACE mg/dL (NEGATIVE); RED CELLS - URINE RARE /hpf (0-5); UROBILINOGEN NORMAL (NORMAL); WHITE CELLS - URINE OCC /hpf (0-5)
[2017-05-14 13:27] LABS: LDL-HDL RATIO 1.8 ratio (1.5-3.5)
[2017-05-14 16:28] VITALS: BP 136/72
[2017-05-14 16:30] VITALS: BP 136/72; Ht 182.9 cm; Wt 85.9 kg
[2017-05-14 20:00] VITALS: BP 157/67
[2017-05-15] VITALS: BP 164/73
[2017-05-15 04:00] VITALS: BP 155/73
[2017-05-15 04:58] LABS: BASOPHILS 0 % (0-2); EOSINOPHILS 0 % (0-7); HEMATOCRIT 43.6 % (42.0-54.0); HEMOGLOBIN 14.8 g/dL (13.5-17.5); IMMATURE GRANULOCYTES 0.3 % (0-5); LYMPHOCYTES 3.9 % (15-50); MCH 30.5 pg (26.0-34.0); MCHC 33.9 g/dL (31.0-37.0); MCV 89.9 fL (80.0-100.0); MEAN PLATELET VOLUME 10.4 fL (7.4-10.4); MONOCYTES 9.9 % (2-11); NEUTROPHILS 85.9 % (40-80); PLATELET COUNT 188 10x3/uL (130-400); RBC 4.85 10x6/uL (4.20-6.10); RDW 13.1 % (11.5-14.5); WBC 15.5 10x3/uL (4.8-10.8)
[2017-05-15 05:22] LABS: ALBUMIN 3.4 g/dL (3.4-5.0); ALKALINE PHOSPHATASE 56 U/L (46-116); ALT (SGPT) 34 U/L (10-68); BILIRUBIN - TOTAL 0.65 mg/dL (0.2-1.3); CALC OSMOLALITY 281 mosm/kg (275-300); CALCIUM 8.4 mg/dL (8.5-10.1); CARBON DIOXIDE 28.1 mmol/L (21.0-32.0); CHLORIDE - SERUM 104 mmol/L (98-107); GLUCOSE 121 mg/dL (74-106); PROTEIN - SERUM 6.3 g/dL (6.4-8.2); SODIUM 141 mmol/L (136-145); UREA NITROGEN 13 mg/dL (7-18); eGFR NON AFRICAN AMERICAN 81 mL/min (90-120)
[2017-05-15 05:33] LABS: AMYLASE - SERUM 627 U/L (25-115); LIPASE 3291 U/L (73-393)
[2017-05-15 09:56] VITALS: BP 148/72
[2017-05-15 12:38] VITALS: BP 155/81
[2017-05-15 20:00] VITALS: BP 156/83
[2017-05-16] VITALS: BP 168/81
[2017-05-16 04:00] VITALS: BP 153/82
[2017-05-16 06:12] LABS: BASOPHILS 0.1 % (0-2); EOSINOPHILS 0.1 % (0-7); HEMATOCRIT 40.1 % (42.0-54.0); HEMOGLOBIN 13.5 g/dL (13.5-17.5); IMMATURE GRANULOCYTES 0.3 % (0-5); LYMPHOCYTES 5.6 % (15-50); MCH 30.6 pg (26.0-34.0); MCHC 33.7 g/dL (31.0-37.0); MCV 90.9 fL (80.0-100.0); MEAN PLATELET VOLUME 10.1 fL (7.4-10.4); MONOCYTES 9.8 % (2-11); NEUTROPHILS 84.1 % (40-80); PLATELET COUNT 157 10x3/uL (130-400); RBC 4.41 10x6/uL (4.20-6.10); RDW 13.2 % (11.5-14.5); WBC 16.7 10x3/uL (4.8-10.8)
[2017-05-16 06:48] LABS: ALBUMIN 2.8 g/dL (3.4-5.0); ALKALINE PHOSPHATASE 48 U/L (46-116); ALT (SGPT) 28 U/L (10-68); BILIRUBIN - TOTAL 0.84 mg/dL (0.2-1.3); CALC OSMOLALITY 273 mosm/kg (275-300); CALCIUM 8.3 mg/dL (8.5-10.1); CARBON DIOXIDE 24.9 mmol/L (21.0-32.0); CHLORIDE - SERUM 103 mmol/L (98-107); CREATININE - SERUM 0.8 mg/dL (0.6-1.3); GLUCOSE 83 mg/dL (74-106); LIPASE 1338 U/L (73-393); POTASSIUM - SERUM 3.8 mmol/L (3.5-5.1); SODIUM 138 mmol/L (136-145); UREA NITROGEN 11 mg/dL (7-18); eGFR NON AFRICAN AMERICAN > 90 mL/min (90-120)
[2017-05-16 06:50] LABS: AMYLASE - SERUM 417 U/L (25-115)
[2017-05-16 07:04] LABS: INR 1.17 (0.85-1.17); PROTIME 14.5 SECONDS (11.6-15.0)
[2017-05-16 08:44] VITALS: BP 147/73
[2017-05-16 16:36] VITALS: BP 161/74
[2017-05-16 20:00] VITALS: BP 164/80
[2017-05-17] VITALS (12 sets, daily range): BP systolic 148–175; BP diastolic 70–89
[2017-05-17 04:50] LABS: BASOPHILS 0.1 % (0-2); EOSINOPHILS 0.6 % (0-7); HEMATOCRIT 37.4 % (42.0-54.0); HEMOGLOBIN 12.6 g/dL (13.5-17.5); IMMATURE GRANULOCYTES 0.3 % (0-5); LYMPHOCYTES 6.5 % (15-50); MCH 30.3 pg (26.0-34.0); MCHC 33.7 g/dL (31.0-37.0); MCV 89.9 fL (80.0-100.0); MEAN PLATELET VOLUME 10.7 fL (7.4-10.4); MONOCYTES 10.7 % (2-11); NEUTROPHILS 81.8 % (40-80); PLATELET COUNT 153 10x3/uL (130-400); RBC 4.16 10x6/uL (4.20-6.10); RDW 12.9 % (11.5-14.5)
[2017-05-17 05:06] LABS: WBC 12.4 10x3/uL (4.8-10.8)
[2017-05-17 05:22] LABS: ALBUMIN 2.5 g/dL (3.4-5.0); ALKALINE PHOSPHATASE 45 U/L (46-116); ALT (SGPT) 29 U/L (10-68); BILIRUBIN - TOTAL 0.96 mg/dL (0.2-1.3); CALC OSMOLALITY 268 mosm/kg (275-300); CALCIUM 8.2 mg/dL (8.5-10.1); CARBON DIOXIDE 28.2 mmol/L (21.0-32.0); CHLORIDE - SERUM 101 mmol/L (98-107); CREATININE - SERUM 0.8 mg/dL (0.6-1.3); GLUCOSE 101 mg/dL (74-106); LIPASE 473 U/L (73-393); POTASSIUM - SERUM 3.6 mmol/L (3.5-5.1); PROTEIN - SERUM 5.9 g/dL (6.4-8.2); SODIUM 135 mmol/L (136-145); UREA NITROGEN 11 mg/dL (7-18); eGFR NON AFRICAN AMERICAN > 90 mL/min (90-120)
[2017-05-17 05:26] LABS: AMYLASE - SERUM 217 U/L (25-115)
[2017-05-18 01:44] VITALS: BP 166/103
[2017-05-18 04:00] VITALS: BP 176/81
[2017-05-18 04:41] LABS: BASOPHILS 0.1 % (0-2); EOSINOPHILS 0.4 % (0-7); HEMATOCRIT 38.9 % (42.0-54.0); HEMOGLOBIN 13.3 g/dL (13.5-17.5); IMMATURE GRANULOCYTES 0.2 % (0-5); LYMPHOCYTES 8.2 % (15-50); MCH 30.1 pg (26.0-34.0); MCHC 34.2 g/dL (31.0-37.0); MEAN PLATELET VOLUME 10.2 fL (7.4-10.4); MONOCYTES 10.2 % (2-11); NEUTROPHILS 80.9 % (40-80); RBC 4.42 10x6/uL (4.20-6.10); RDW 12.6 % (11.5-14.5); WBC 9.3 10x3/uL (4.8-10.8)
[2017-05-18 04:42] LABS: PLATELET COUNT 188 10x3/uL (130-400)
[2017-05-18 04:53] LABS: ALBUMIN 2.5 g/dL (3.4-5.0); ALKALINE PHOSPHATASE 48 U/L (46-116); BILIRUBIN - TOTAL 0.79 mg/dL (0.2-1.3); CALC OSMOLALITY 278 mosm/kg (275-300); CARBON DIOXIDE 28.7 mmol/L (21.0-32.0); CHLORIDE - SERUM 104 mmol/L (98-107); CREATININE - SERUM 0.8 mg/dL (0.6-1.3); GLUCOSE 108 mg/dL (74-106); LIPASE 174 U/L (73-393); MAGNESIUM - SERUM 2.4 mg/dL (1.8-2.4); POTASSIUM - SERUM 3.3 mmol/L (3.5-5.1); PROTEIN - SERUM 5.9 g/dL (6.4-8.2); SODIUM 140 mmol/L (136-145); UREA NITROGEN 9 mg/dL (7-18); eGFR NON AFRICAN AMERICAN > 90 mL/min (90-120)
[2017-05-18 05:20] LABS: AMYLASE - SERUM 81 U/L (25-115)
[2017-05-18 05:21] LABS: ALT (SGPT) 61 U/L (10-68); PHOSPHOROUS 1.2 mg/dL (2.5-4.9)
[2017-05-18 08:35] VITALS: BP 183/95
[2017-05-18 12:30] VITALS: BP 171/86
== END 2017-05-18 13:45 | disposition home or self-care (01) | DRG 418 ==
LOC: D.ER 11:48 → D.MS 15:05
PROVIDERS: Emergency Medicine; Internal Medicine Gastroenterology; Surgery
PROC: 0FB03ZX Excision of Liver, Percutaneous Approach, Diagnostic (ICD-10-PCS; 2017-05-17)
PROC: 0FT44ZZ Resection of Gallbladder, Percutaneous Endoscopic Approach (ICD-10-PCS; principal; 2017-05-17 10:15)
PROC: 0WQF4ZZ Repair Abdominal Wall, Percutaneous Endoscopic Approach (ICD-10-PCS; 2017-05-17 10:15)
PROC: BF121ZZ Fluoroscopy of Gallbladder using Low Osmolar Contrast (ICD-10-PCS; 2017-05-17 10:15)
DX: K85.10 Biliary acute pancreatitis without necrosis or infection (principal); K42.0 Umbilical hernia with obstruction, without gangrene; K80.20 Calculus of gallbladder without cholecystitis without obstruction; R16.0 Hepatomegaly, not elsewhere classified; I10 Essential (primary) hypertension; E78.5 Hyperlipidemia, unspecified; I25.10 Atherosclerotic heart disease of native coronary artery without angina pectoris; I73.9 Peripheral vascular disease, unspecified; F41.9 Anxiety disorder, unspecified; Z87.891 Personal history of nicotine dependence

== ENCOUNTER → 2017-09-02 12:20 | Outpatient (CLI) | payer OTHER | END | disposition home or self-care (01) | LOC: D.US 08-31 13:00 | DX: I65.23 Occlusion and stenosis of bilateral carotid arteries (principal) ==

== ENCOUNTER → 2018-07-07 08:40 | Outpatient (CLI) | payer OTHER | END | disposition home or self-care (01) | LOC: D.CT 08:40 | PROVIDERS: ATTEND Internal Medicine Cardiovascular Disease | DX: I70.293 Other atherosclerosis of native arteries of extremities, bilateral legs (principal); I73.9 Peripheral vascular disease, unspecified ==

== ENCOUNTER 2018-07-25 07:58 | Inpatient (IN) | payer OTHER ==
[~2018-07-25] VITALS: Ht 182.9 cm; Wt 88.2 kg
[2018-07-25] MEDS ORDERED: AMBIEN10 MG PO (08:21)
[2018-07-25] MEDS ORDERED: ULTRAM50 MG PO (08:22)
[2018-07-25] MEDS ORDERED: BAYER CHEWABLE81 MG PO (08:23)
[2018-07-25] MEDS ORDERED: CARTIA XT240 MG PO (08:23)
[2018-07-25] MEDS ORDERED: ZANAFLEX4 MG PO (08:23)
[2018-07-25 09:41] LABS: HEMOGLOBIN 15.1 g/dL (13.5-17.5); MCH 30.4 pg (26.0-34.0); MCHC 35.1 g/dL (31.0-37.0); MCV 86.7 fL (80.0-100.0); MEAN PLATELET VOLUME 10.7 fL (7.4-10.4); RBC 4.96 10x6/uL (4.20-6.10); RDW 12.7 % (11.5-14.5); WBC 7.6 10x3/uL (4.8-10.8)
[2018-07-25 09:44] LABS: APPEARANCE CLEAR (CLEAR); BILIRUBIN NEGATIVE (NEGATIVE); COLOR YELLOW (YELLOW); GLUCOSE NEGATIVE (NEGATIVE); KETONE NEGATIVE (NEGATIVE); NITRITE NEGATIVE (NEGATIVE); PROTEIN NEGATIVE (NEGATIVE); SPECIFIC GRAVITY 1.015 (1.005-1.020); UROBILINOGEN NORMAL (NORMAL)
[2018-07-25 10:01] LABS: APTT 29.3 SECONDS (22.8-39.4); INR 1.04 (0.85-1.17); PROTIME 13.1 SECONDS (11.6-15.0)
[2018-07-25 10:04] LABS: ALBUMIN 4.2 g/dL (3.4-5.0); ANION GAP 8.4 mmol/L (8-16); BILIRUBIN - TOTAL 0.59 mg/dL (0.2-1.3); CALCIUM 8.7 mg/dL (8.5-10.1); CARBON DIOXIDE 31.6 mmol/L (21.0-32.0); CREATININE - SERUM 1.1 mg/dL (0.6-1.3); PROTEIN - SERUM 7.7 g/dL (6.4-8.2)
[2018-07-26] VITALS (50 sets, daily range): BP systolic 118–171; BP diastolic 56–81; BMI 25.8; BMI 26.3
--- NOTE | 2018-07-26 11:21 | NUR ---
PT ARRIVED FROM THE OR. PT CONNECTED TO ICU MONTIORS. NITRO INITIATED AND TITRATED PER ORDERS FOR EFFECT. PT ON 10L VIA SIMPLE MASK. LEFT SUB CLAVIAN CVL NOTED C/D/I. SEE IV FLUIDS IN FLOW SHEET. IV NOTED TO RIGHT AC SL AND PATENT WITH C/D/I DRESSING. FC NOTED WITH CLEAR YELLOW URINE. RIGHT GROIN DRESSING C/D/I WITH NO HEMATOMA NOTED. BILATERAL DORALIS PEDIS PULSES PALPABLE AND BILATERAL POSTERIOR TIBIAL PULSES DOPPLERABLE. PT AWAKE BUT GROGGY. WILL CONT POC.
--- NOTE | 2018-07-26 11:37 | NUR ---
CXR AT THE PTS BEDSIDE.
--- NOTE | 2018-07-26 12:00 | NUR ---
DR MENDEZ AT THE PTS BEDSIDE. DECREASED PLASMALYTE TO 30CC/H. CONT TO TITRATE BP FOR EFFECT. SEE IV FLOW SHEET.
--- NOTE | 2018-07-26 12:10 | NUR ---
PT C/O NAUSEA. PRN ZOFRAN GIVEN.
--- NOTE | 2018-07-26 13:00 | NUR ---
PT AWAKE. ADVANCE TO PO FLUIDS AND SHOWS NO S/SX OF DYSPAGIA NOTED. PO PILLS TOO WITH NO ISSUES. NO MORE C/O NAUSEA.
--- NOTE | 2018-07-26 14:18 | NUR ---
NO CHANGES IN PULSES. DRESSING C/D/I AND NO HEMATOMA PALPATED. WILL CONT POC.
--- NOTE | 2018-07-26 15:25 | NUR ---
PT REASSESSED. PT DOING WELL. VSS. NO CHANGE IN PULSES OR GROIN
--- NOTE | 2018-07-26 19:14 | NUR ---
REPORT RECEIVED, SHIFT ASSESSMENT COMPLETED PER FLOW SHEET. AAOX4. LT SUBCLAVIAN CVL PATENT, NO SIGNS OF INFECTION OR INFILTRATION. TEACHING PROVIDED ON USE OF MORPHINE DATA ENTRY REPRESENTATIVE, VERBALIZES UNDERSTANDING, DENIES PAIN. RT GROIN INCISION SITE NOTED, DRESSING C/D/I, SOFT TO PALPATION. PPP. SEE FLOW SHEET FOR COMPLETE ASSESSMENT. WILL CONTINUE TO MONITOR. CALL LIGHT WITHIN REACH.
--- NOTE | 2018-07-26 19:18 | NUR ---
DR MENDEZ CALLED FOR UPDATE ON THE PT. DR MENDEZ UPDATED. N.O TO GIVE 150MG OF PLAVIX PO NOW AND TO START 75MG PLAVIX QD STARTING TOMORROW AM. BLENDING PLANT OPERATOR NURSE AWARE AND WILL GIVE MEDICATION ORDERED.
--- NOTE | 2018-07-26 19:28 | NUR ---
SCHEDULED MEDS GIVEN, WATER PROVIDED, TOLERATED WELL. DENIES NEEDS. CALL LIGHT WITHIN REACH.
--- NOTE | 2018-07-26 20:09 | NUR ---
SONS AT BEDSIDE, QUESTIONS ANSWERED, UPDATE GIVEN. WILL CONTINUE TO MONITOR.
--- NOTE | 2018-07-26 21:04 | NUR ---
SCHEDULED MEDS GIVEN, DENIES NEEDS, CALL LIGHT WITHIN REACH.
--- NOTE | 2018-07-26 23:11 | NUR ---
REASSESSMENT COMPLETED PER FLOW SHEET, SEE FOR DETAILS. NO ACUTE CHANGES NOTED. PPP. DENIES NEEDS. CALL LIGHT WITHIN REACH. WILL CONTINUE TO MONITOR.
[2018-07-27] VITALS (54 sets, daily range): BP systolic 114–166; BP diastolic 58–74; Ht 182.9 cm; Wt 88.2 kg
--- NOTE | 2018-07-27 01:36 | NUR ---
C/O NAUSEA, PRN ZOFRAN ADMINISTERED, DENIES OTHER NEEDS. CALL LIGHT WITHIN REACH.
--- NOTE | 2018-07-27 03:01 | NUR ---
REASSESSMENT COMPLETED PER FLOW SHEET, SEE FOR DETAILS. NO ACUTE DISTRESS NOTED. DENIES NEEDS. WILL CONTINUE TO MONITOR.
--- NOTE | 2018-07-27 05:00 | NUR ---
NO ACUTE CHANGES NOTED, WILL CONTINUE TO MONITOR.
[2018-07-27 06:40] LABS: MCH 29.5 pg (26.0-34.0); MCV 86.8 fL (80.0-100.0); MEAN PLATELET VOLUME 10.5 fL (7.4-10.4); RDW 12.9 % (11.5-14.5)
--- NOTE | 2018-07-27 07:00 | NUR ---
REPORT RECEVIED FROM THE OFF GOING RN. SEE ASSESSMENT IN THE PTS FLOW SHEET. PT IN BED. VSS. O2 REMOVE AND PT NOW ON RA. PT DENIES SOB. BREATHING NORMAL AND UNLABORED. O2 SAT 98%. LEFT SUBCLAVIAN CVL NOTED. C/D/I. SEE IV FLUIDS IN THE PTS FLOW SHEET. MORPHINE [employer] MAINFRAME SYSTEMS PROGRAMMER PUMP NOTED. PT STATES THAT HE HAS BEEN USING IT. RIGHT GROIN DRESSING C/D/I. SOFT TO PALPATION. NO HEMATOMA NOTED. DORALIS PEDIS AND POSTERIOR TIBIAL PULSES PALPABLE. BLE EQUAL TO COLOR AND TEMP. PT DENIES NUMBNESS/TINGGLING FEET. PT COMPLAINING OF NAUSEA AND DYSPEPSIA. SCHEDUALED PROTONIX AND PRN REGLAN GIVEN. SEE MAR. TITRATING NITRO FOR EFFECT. CALL LIGHT IN REACH. WILL CONT POC.
[2018-07-27 07:03] LABS: HEMATOCRIT 33.5 % (42.0-54.0); HEMOGLOBIN 11.4 g/dL (13.5-17.5); RBC 3.86 10x6/uL (4.20-6.10)
[2018-07-27 07:09] LABS: ALBUMIN 3.2 g/dL (3.4-5.0); ALKALINE PHOSPHATASE 49 U/L (46-116); BILIRUBIN - TOTAL 0.71 mg/dL (0.2-1.3); CALC OSMOLALITY 280 mosm/kg (275-300); CALCIUM 7.5 mg/dL (8.5-10.1); CARBON DIOXIDE 29.2 mmol/L (21.0-32.0); CHLORIDE - SERUM 105 mmol/L (98-107); CREATININE - SERUM 0.9 mg/dL (0.6-1.3); GLUCOSE 126 mg/dL (74-106); POTASSIUM - SERUM 3.7 mmol/L (3.5-5.1); PROTEIN - SERUM 5.9 g/dL (6.4-8.2); SODIUM 140 mmol/L (136-145); UREA NITROGEN 12 mg/dL (7-18); eGFR NON AFRICAN AMERICAN > 90 mL/min (90-120)
[2018-07-27 07:11] LABS: ALT (SGPT) 42 U/L (10-68)
--- NOTE | 2018-07-27 09:38 | NUR ---
NO COMPLAINTS OF NAUSEA AND NO VOMITING NOTED. CONT POC.
--- NOTE | 2018-07-27 10:42 | NUR ---
PT ASSISTED TO THE SIDE OF THE BED. PT COMPLAINING OF GROIN PAIN AND PRESSING HIS GALLERY OR MUSEUM GUIDE BUTTON. PT DANGLEING AT THE SIDE OF THE BED AND TOELRATED WELL. FC DC'D PER ORDERS. URINAL PROVIDED. PT RECEIVED A BED BATH, HYGIENE PRODUCTS PROVIDED. PHYSCIAL THERAPY PAGED TO AMBULATED WITH THE PT.
--- NOTE | 2018-07-27 11:00 | NUR ---
REASSESSMENT COMPLETED. SEE FLOW SHEET. VSS. WILL COT POC.
--- NOTE | 2018-07-27 11:22 | NUR ---
PT AMBULATED WITH PHYSCIAL THEARPY USING A ROLLING WALKER. AMBULATED OVER 100 FEET. UNSTEADY GAIT. MILD PAIN TO GROIN. PT TOLERATEED WELL. CALL LIGHT IN REACH. WILL CONT POC.
--- NOTE | 2018-07-27 15:00 | NUR ---
REASSESSMENT COMPLETED. PT IN BED RESTING WITH HIS EYES CLOSED WITH EVEN AND UNLABORED RESPIRATION. WILL CONT POC.
--- NOTE | 2018-07-27 18:00 | NUR ---
PT VOIDED 450 ML OF CLEAR, YELLOW URINE.
--- NOTE | 2018-07-27 19:20 | NUR ---
REPORT RECEIVED, SHIFT ASSESSMENT COMPLETED PER FLOW SHEET. AAOX4. PPP. LAYING IN BED WATCHING TV. LT SUBCLAVIAN CVL PATENT, NO SIGNS OF INFECTION OR INFILTRATION. RIGHT GROIN INCISION SITE DRESSING C/D/I, SOFT TO PALPATION. DENIES PAIN OR NEEDS. CALL LIGHT WITHIN REACH. SEE FLOW SHEET FOR COMPLETE ASSESSMENT. WILL CONTINUE TO MONITOR.
--- NOTE | 2018-07-27 20:32 | NUR ---
SCHEDULED MEDS GIVEN, WATER PROVIDED. DENIES NEEDS. CALL LIGHT WITHIN REACH. WILL CONTINUE TO MONITOR.
--- NOTE | 2018-07-27 21:00 | NUR ---
DENIES NEEDS, WILL CONTINUE TO MONITOR.
--- NOTE | 2018-07-27 23:11 | NUR ---
REASSESSMENT COMPLETED PER FLOW SHEET, SEE FOR DETAILS. NO ACUTE CHANGES NOTED. PPP. DENIES NEEDS. RIGHT GROIN INCISION SITE SOFT TO PALPATION, DRESSING C/D/I. WILL CONTINUE TO MONITOR. CALL LIGHT WITHIN REACH.
[2018-07-28] VITALS (11 sets, daily range): BP systolic 129–166; BP diastolic 67–79
--- NOTE | 2018-07-28 01:04 | NUR ---
400 MLS EMPTIED FROM URINAL. DENIES NEEDS. CALL LIGHT WITHIN REACH.
--- NOTE | 2018-07-28 03:18 | NUR ---
REASSESSMENT COMPLETED PER FLOW SHEET, SEE FOR DETAILS. NO ACUTE DISTRESS NOTED. WILL CONTINUE TO MONITOR.
--- NOTE | 2018-07-28 03:27 | NUR ---
300 MLS EMPTIED FROM URINAL, DENIES NEEDS, CALL LIGHT WITHIN REACH.
--- NOTE | 2018-07-28 05:31 | NUR ---
AWAKE, ASSISSTED OOB TO CHAIR, AMBULATES WITH ASSISSTANCE AND USE OF WALKER. CALL LIGHT AND BELONGINGS WITHIN REACH. 300 MLS UOP EMTPIED FROM URINAL. DENIES NEEDS. WILL CONTINUE TO MONITOR.
[2018-07-28] MEDS ORDERED: PLAVIX75 MG PO (09:54)
[2018-07-28] MEDS ORDERED: HYDROCODON-ACE1 EA10 PO (09:55)
--- NOTE | 2018-07-28 11:14 | NUR ---
LEFT SUBCLAVIAN CENTRAL LINE REMOVED. TIP INTACT. NO BLEEDING.
--- NOTE | 2018-07-28 11:40 | NUR ---
DISCHARGE INSTRUCTIONS REVIEWED WITH PATIENT AND .
--- NOTE | 2018-07-28 13:08 | MORECARE ---
CASE MANAGEMENT DISCHARGE SUMMARY PATIENT: FAUSTINA MONACO UNIT: [id number] ADM DATE: 07/26/18 AGE: 63 : 55 SEX: M ROOM/BED: D.[facility] AUTHOR: RAYODOC PHYSICIAN: REFERRING PHYSICIAN: ULISES MENDEZ MD DATE OF SERVICE: 07/28/18 Discharge Plan Patient Name: FAUSTINA MONACO Facility: [facility]:[place] : 1955 Planned Disposition: Home Anticipated Discharge Date: Discharge Date: 07/28/2018 Expected LOS: Initial Reviewer: [email or web address] Initial Review Date: 07/27/2018 Generated: 07/28/18 2:08 pm Comments DCP- Discharge Planning Updated by [email or web address]: Fior Colindres on 07/28/18 12:[address] LATE ENTRY 07/27/18 @ 1745 Patient Name: FAUSTINA MONACO Admission Status: Urgent Accout number: [id number] Admission Date: 07-26-2018 : 1955 Admission Diagnosis: Attending: ULISES MENDEZ Current LOS: 2 Anticipated DC Date: Planned Disposition: Home Primary Insurance: [facility] Discharge Planning Comments: CM met with patient and spouse at bedside. Patient states he lives at home with is spouse (SY). He plans on returning to their home upon discharge. He states he feels safe at his home. He states he will have family drive him home upon discharge. He denies any discharge needs at this time. CM will continue to follow and assist as needed with discharge planning / needs. Senior Chemist: Fior Colindres DCPIA - Discharge Planning Initial Assessment Updated by [email or web address]: Fior Colindres on 07/28/18 1:05 pm * Is the patient Alert and Oriented? Yes * How many steps to enter\exit or inside your home? * PCP [facility] * [facility] * Preadmission Environment Home with Family * ADLs Independent * Other Equipment CANE AND WALKER AVAILABLE IF NEEDED * List name and contact numbers for known caregivers / representatives who currently or will assist patient after discharge: SY MONACO - - [phone] * Verbal permission to speak to the caregivers and representatives has been obtained from the patient. Yes * Community resources currently utilized None * Additional services required to return to the preadmission environment? No * Can the patient safely return to the preadmission environment? Yes * Has this patient been hospitalized within the prior 30 days at any hospital? No Patient Name: FAUSTINA MONACO Page 18523 at 1308 All edits/amendments must be made on the electronic document DICTATION DATE: 07/28/18 1308 PATIENT PORTAL CONCIERGE: ROSINA 07/28/18 1308 RPT#: [id number] DC DATE:07/28/18 STATUS: DIS IN [facility] [address] [place] [address] END OF REPORT
--- NOTE | 2018-07-28 13:17 | MORECARE ---
CASE MANAGEMENT DISCHARGE SUMMARY PATIENT: FAUSTINA MONACO UNIT: [id number] ADM DATE: 07/26/18 AGE: 63 : 55 SEX: M ROOM/BED: D.[facility] AUTHOR: RAYODOC PHYSICIAN: REFERRING PHYSICIAN: ULISES MENDEZ MD DATE OF SERVICE: 07/28/18 Discharge Plan Patient Name: FAUSTINA MONACO Facility: [facility]:[place] : 1955 Planned Disposition: Home Anticipated Discharge Date: Discharge Date: 07/28/2018 Expected LOS: Initial Reviewer: [email or web address] Initial Review Date: 07/27/2018 Generated: 07/28/18 2:17 pm Comments DCP- Discharge Planning Updated by [email or web address]: Fior Colindres on 07/28/18 12:[address] LATE ENTRY 07/27/18 @ 1745 Patient Name: FAUSTINA MONACO Admission Status: Urgent Accout number: [id number] Admission Date: 07-26-2018 : 1955 Admission Diagnosis: Attending: ULISES MENDEZ Current LOS: 2 Anticipated DC Date: Planned Disposition: Home Primary Insurance: [facility] Discharge Planning Comments: CM met with patient and spouse at bedside. Patient states he lives at home with is spouse (SY). He plans on returning to their home upon discharge. He states he feels safe at his home. He states he will have family drive him home upon discharge. He denies any discharge needs at this time. CM will continue to follow and assist as needed with discharge planning / needs. Merchandise Flow Associate: Fior Colindres DCPIA - Discharge Planning Initial Assessment Updated by [email or web address]: Fior Colindres on 07/28/18 1:05 pm * Is the patient Alert and Oriented? Yes * How many steps to enter\exit or inside your home? * PCP [facility] * [facility] * Preadmission Environment Home with Family * ADLs Independent * Other Equipment CANE AND WALKER AVAILABLE IF NEEDED * List name and contact numbers for known caregivers / representatives who currently or will assist patient after discharge: SY MONACO - - [phone] * Verbal permission to speak to the caregivers and representatives has been obtained from the patient. Yes * Community resources currently utilized None * Additional services required to return to the preadmission environment? No * Can the patient safely return to the preadmission environment? Yes * Has this patient been hospitalized within the prior 30 days at any hospital? No Last DP export: 07/28/18 12:08 p Patient Name: FAUSTINA MONACO Page 71424 at 1317 All edits/amendments must be made on the electronic document DICTATION DATE: 07/28/181316 PRESSURE STEAMER TENDER: ROSINA 07/28/181316 RPT#: [id number] DC DATE:07/28/18 STATUS: DIS IN [facility] [address] [place] [address] END OF REPORT
--- NOTE | 2018-07-30 12:35 | OP ---
PATIENT NAME: FAUSTINA MONACO MEDICAL RECORD: [id number] LOCATION:[facility] [id number] ADMISSION DATE:07/26/18 SURGEON: ULISES MENDEZ MD DATE OF OPERATION: 07/26/2018 SURGEON: Ulises Mendez MD ANESTHESIA: General endotracheal, Dr. Hoffman. YARD STOCKER: Dr. Carranza PREOPERATIVE DIAGNOSES: Severe stenosis of the right common, superficial femoral, and profunda femoral arteries. POSTOPERATIVE DIAGNOSES: Severe stenosis of the right common, superficial femoral, and profunda femoral arteries. INDICATION FOR OPERATION: Symptomatic arterial occlusion, right femoral artery. FINDINGS OF THE OPERATION: Subtotal occlusion of the right common femoral, superficial, and profunda femoral arteries. ESTIMATED BLOOD LOSS: Less than 150 mL. DESCRIPTION OF PROCEDURE: After informed consent, adequate preoperative medication evaluation, the patient was brought to the operating room, placed on the table in the supine position. After induction of general endotracheal anesthesia and application of appropriate monitoring devices, the patient was prepped and draped in a sterile field, utilizing Betadine scrub, alcohol, and Betadine solution. Betadine-impregnated drape was also used. Dr. Carranza was the first coat sander and participated in the dissection, endarterectomy and patching. An incision was made in a vertical position over the inguinal ligament and dissection carried down to the fascia. The common femoral artery, superficial femoral artery and profunda femoral arteries were dissected free of surrounding structures, protecting the neurological structures. The next was a difficult dissection around the graft and external iliac artery. After adequate dissection, the patient was given a calculated dose of heparin and after 3 minutes clamps were applied. The arteriotomy was made and a Loco catheter was placed in the external iliac artery and inflated with good hemostasis. The endarterectomy was then carried onto the superficial femoral artery. The arteriotomy extended from the jay of the previous graft to the 4 cm into the superficial femoral artery. The endarterectomy was performed sharply. The endarterectomy involved the proximal superficial femoral artery, proximal profunda femoral artery and the proximal common femoral and distal iliac arteries. The artery underwent extensive debridement and irrigation. Utilizing a vascular patch and running 6-0 Prolene suture, the arteriotomy was closed with a patch angioplasty technique. The tributaries were released and the Loco catheter was removed. The last stitch was placed. The clamps removed. There was excellent flow through the common femoral and superficial femoral arteries and profunda femoral arteries. The patient was given a calculated dose of protamine to reverse the heparin. Hemostasis was achieved. Wound was irrigated with copious amounts of antibiotic solution and normal saline. Wound was closed in layers utilizing 2-0 Vicryl on deep subcutaneous tissue and the inguinal ligament. The subcutaneous tissue approximated with 3-0 Vicryl and skin approximated with 3-0 subcuticular Vicryl. Sterile dressings were applied. The OPERATIVE REPORT [id number] FAUSTINA MONACO patient tolerated the procedure well and was transferred to the [facility] ICU in satisfactory condition. TRANSINT:[id number] Voice Confirmation ID: [id number] DOCUMENT ID: [id number] ULISES MENDEZ MD at 1235 CC: [id number] DICTATION DATE: 07/26/18 1148 COMPUTED TOMOGRAPHY TECHNOLOGIST: 07/26/18 1251 DIS IN 07/28/18 [id number] [place] [id number]
== END 2018-07-28 11:49 | disposition home or self-care (01) | DRG 254 ==
LOC: D.SDCHOLD 07-26 05:00 → D.CVICU 07-26 05:00 → D.SDCHOLD 07-26 07:30 → D.CVICU 07-26 08:07
PROVIDERS: Thoracic Surgery (Cardiothoracic Vascular Surgery); ADMIT Internal Medicine Cardiovascular Disease; ATTEND Internal Medicine Cardiovascular Disease
PROC: 04UK0JZ Supplement Right Femoral Artery with Synthetic Substitute, Open Approach (ICD-10-PCS; 2018-07-26)
PROC: 04CK0ZZ Extirpation of Matter from Right Femoral Artery, Open Approach (ICD-10-PCS; principal; 2018-07-26 07:30)
DX: I77.1 Stricture of artery (principal); F17.200 Nicotine dependence, unspecified, uncomplicated; I70.211 Atherosclerosis of native arteries of extremities with intermittent claudication, right leg

== ENCOUNTER → 2019-03-20 08:18 | Outpatient (CLI) | payer OTHER ==
[2018-07-27 09:45] VITALS: BMI 26.3
[~2019-03-20 08:18] MED LIST changes: +AMBIEN10 MG PO; +CARTIA XT240 MG PO; +HYDROCODON-ACE1 EA10 PO; +ULTRAM50 MG PO; +ZANAFLEX4 MG PO
== END | disposition home or self-care (01) ==
LOC: D.US 08:18
PROVIDERS: ATTEND Thoracic Surgery (Cardiothoracic Vascular Surgery)
DX: I65.23 Occlusion and stenosis of bilateral carotid arteries (principal)